=== PATIENT | male | born 1985 | race Caucasian/White ===

== ENCOUNTER → 2016-10-30 | Outpatient (CLI) | payer OTHER ==
[~2016-10-30] MED LIST: BACTRIM DS 8001 TA1 PO; CEPHALEXIN500 M1 PO; COMPAZINE10 MG PO; DAYPRO600 M1 PO; NKHM; ZANTAC150 MG PO
== END | disposition home or self-care (01) ==
LOC: MRI 09-25 13:00
DX: R42 Dizziness and giddiness (principal)